=== PATIENT | female | born 1980 | race Caucasian/White ===

== ENCOUNTER 2018-09-29 01:48 | Emergency (ER) | payer OTHER ==
[~2018-09-29] VITALS: Ht 162.6 cm; Wt 83.5 kg
[~2018-09-29 01:48] MED LIST: PROTONIX40 MG PO
[2018-09-29] MEDS ORDERED: METFORMIN HCL500 MG (02:05)
[2018-09-29] MEDS ORDERED: CIPRO XR 500 M500 MG (02:05)
[2018-09-29] MEDS ORDERED: GLIMEPIRIDE1 MG (02:05)
[2018-09-29] MEDS ORDERED: URIN D.S. TABL1 EACH (02:06)
[2018-09-29] MEDS ORDERED: LEVSIN/SL0.125 MG SL (07:49)
[2018-09-29] MEDS ORDERED: ULTRACET PO (07:49)
[2018-09-29] MEDS ORDERED: INTESTINEX680 M1 PO (07:49)
[2018-09-29] MEDS ORDERED: PEPCID AC20 MG PO (07:49)
== END 2018-09-29 09:13 | disposition home or self-care (01) ==
LOC: ER 01:48
DX: N20.1 Calculus of ureter (principal); N39.0 Urinary tract infection, site not specified

== ENCOUNTER 2020-06-26 13:09 | Emergency (ER) | payer OTHER ==
[~2020-06-26] VITALS: Ht 160 cm; Wt 79.4 kg
[~2020-06-26 13:09] MED LIST changes: +CIPRO XR 500 M500 MG; +GLIMEPIRIDE1 MG; +INTESTINEX680 M1 PO; +LEVSIN/SL0.125 MG SL; +METFORMIN HCL500 MG; +PEPCID AC20 MG PO; +ULTRACET PO; +URIN D.S. TABL1 EACH
== END 2020-06-26 21:03 | disposition home or self-care (01) ==
LOC: ER 13:09
DX: N89.8 Other specified noninflammatory disorders of vagina (principal); N20.0 Calculus of kidney; N76.0 Acute vaginitis; Z03.818 Encounter for observation for suspected exposure to other biological agents ruled out

== ENCOUNTER 2023-11-10 10:55 | Emergency (ER) | payer OTHER ==
[~2023-11-10] VITALS: Ht 160 cm; Wt 79.8 kg
[2023-11-10 14:36] LABS: PH,URINE 5.5 (5.0-8.0); URINE APPEARANCE Clear; URINE BILIRRUBIN Negative (NEGATIVE); URINE BLOOD NHT; URINE COLOR Yellow; URINE GLUCOSE Negative (NEGATIVE); URINE LEUKOCYTE Trace; URINE NITRATE Negative; URINE PROTEIN Negative (NEGATIVE); URINE UROBILINOGEN 0.2 E.U./dl
[2023-11-10 14:38] LABS: URINE BACTERIA 526.6 uL (0.0-1933); URINE EPITHELIAL CELLS 16.2 uL (0.0-38.8); URINE RBC 6.6 uL (0.0-20.8); URINE WBC 22.9 uL (0.0-23.2)
[2023-11-10 14:45] LABS: HEMATOCRIT 42.2 % (36.0-45.00); HEMOGLOBIN 14.6 g/dL (12.0-15.00); MEAN CELL VOLUME 87.8 fL (80.00-100.00); MEAN CORPUSCULAR HEMOGLOBIN 30.4 pg (27.00-32.0); MEAN CORPUSCULAR HGB CONC 34.6 g/dl (32.0-36.0); PLATELET COUNT 320 K/uL (150-450); RED BLOOD COUNT 4.81 M/uL (4.00-6.00); RED CELL DISTRIBUTION WIDTH 12.6 % (11.5-14.5)
[2023-11-10 14:48] LABS: ABG PH 7.464 (7.35-7.45); BASE EXCESS 0.2 mmol/l; BICARBONATE 23.2 mmol/l (23-25); SaO2 98.8 %; Tco2 24.2 mmol/l; allen test SATISFACTORY; o2 21 %; puncture site RADIAL RIGHT
[2023-11-10] MEDS ORDERED: KETOROLAC TROMETHAMINE 60 MG VIAL IM ONE (15:45)
== END 2023-11-10 16:33 | disposition home or self-care (01) ==
LOC: ER 10:55
PROVIDERS: Emergency Medicine
DX: F41.0 Panic disorder [episodic paroxysmal anxiety] (principal); E11.9 Type 2 diabetes mellitus without complications; Z79.84 Long term (current) use of oral hypoglycemic drugs